=== PATIENT | female | born 1985 | race Caucasian/White ===

== ENCOUNTER → 2017-01-27 | Outpatient (CLI) | payer OTHER ==
[~2017-01-27] MED LIST: COLACE 100MG C100 MG PO; MIRALAX17 GM PO; NORCO 7.5-3251 EACH PO
== END ==
LOC: NM 08:00
DX: R10.11 Right upper quadrant pain (principal)
CPT/HCPCS: 78226; A9537

== ENCOUNTER 2022-02-07 22:07 | Emergency (ER) | payer BC ==
[~2022-02-07 22:07] MED LIST changes: +PANTOPRAZOLE SO20 MG PO; +PHENERGAN 25 MG25 M1 PO; +ZOFRAN ODT 4 MG4 MG PO
[2022-02-08 00:23] LABS: HEMOGLOBIN 12.5 gm/dl (12.3-15.3); RED BLOOD COUNT 4.32 M/UL (4.00-5.10); WHITE BLOOD COUNT 9.4 K/UL (4.5-11.0)
[2022-02-08] MEDS ORDERED: ZOFRAN ODT 4 MG4 MG PO (18:00)
[2022-02-08] MEDS ORDERED: PANTOPRAZOLE SO20 MG PO (18:00)
[2022-02-08] MEDS ORDERED: PROMETHAZINE HC25 M1 PO (18:01)
[2022-02-09] MEDS ORDERED: IBUPROFEN600 MG PO (10:38)
[2022-02-09] MEDS ORDERED: HYDROCODONE-AC1 EACH PO (10:38)
== END 2022-02-08 04:36 | disposition home or self-care (01) ==
LOC: ER1 22:07
PROVIDERS: Physician Assistant
DX: N83.201 Unspecified ovarian cyst, right side (principal); N83.202 Unspecified ovarian cyst, left side
CPT/HCPCS: 76830; 80053; 81001; 83690; 85025; 96374; 96375; 99284; J1885; J2270; J2405

== ENCOUNTER 2022-02-08 16:22 | Observation (INO) | payer BC ==
[~2022-02-08] VITALS: Ht 170.2 cm; Wt 127.9 kg
[2022-02-08 17:56] LABS: HEMOGLOBIN 11.6 gm/dl (12.3-15.3); RED BLOOD COUNT 4.11 M/UL (4.00-5.10); WHITE BLOOD COUNT 7.3 K/UL (4.5-11.0)
[2022-02-08] MEDS ORDERED: ZOFRAN ODT 4 MG4 MG PO (18:00)
[2022-02-08] MEDS ORDERED: PANTOPRAZOLE SO20 MG PO (18:00)
[2022-02-08] MEDS ORDERED: PROMETHAZINE HC25 M1 PO (18:01)
[2022-02-08 18:45] LABS: BUN/CREATININE RATIO 10 (0-10)
[2022-02-09] MEDS ORDERED: IBUPROFEN600 MG PO (10:38)
[2022-02-09] MEDS ORDERED: HYDROCODONE-AC1 EACH PO (10:38)
== END 2022-02-09 20:38 | disposition home or self-care (01) ==
LOC: M/S 16:22
PROVIDERS: ADMIT Obstetrics & Gynecology
DX: D27.1 Benign neoplasm of left ovary (principal); N83.201 Unspecified ovarian cyst, right side; N92.1 Excessive and frequent menstruation with irregular cycle; N83.519 Torsion of ovary and ovarian pedicle, unspecified side; E78.5 Hyperlipidemia, unspecified; I10 Essential (primary) hypertension; E55.9 Vitamin D deficiency, unspecified; E03.9 Hypothyroidism, unspecified; Z98.51 Tubal ligation status; Z20.822 Contact with and (suspected) exposure to COVID-19
CPT/HCPCS: 80053; 81001; 85027; 86850; 86900; 86901; 87086; 96365; 96366; 96375; 96376; G0378; G0379; J1885; J2001; J2250; J2270; J2405; J2704; J2710; J3010; J7120; U0002

== ENCOUNTER → 2022-06-08 | Outpatient (CLI) | payer BC ==
[~2022-06-08] MED LIST changes: +HYDROCODONE-AC1 EACH PO; +IBUPROFEN600 MG PO; +PROMETHAZINE HC25 M1 PO
== END ==
LOC: EXRD 05-19 09:00
DX: K76.0 Fatty (change of) liver, not elsewhere classified (principal)
CPT/HCPCS: 76705